=== PATIENT | male | born 1990 | race Caucasian/White ===

== ENCOUNTER 2018-12-21 20:09 | Emergency (ER) | payer SELFPAY ==
[~2018-12-21] VITALS: Ht 167.6 cm; Wt 97.5 kg
[2018-12-21 23:46] VITALS: BP 137/102
== END 2018-12-21 23:46 | disposition home or self-care (01) ==
LOC: ED 20:09
DX: S01.112A Laceration without foreign body of left eyelid and periocular area, initial encounter (principal); W18.2XXA Fall in (into) shower or empty bathtub, initial encounter; Y93.89 Activity, other specified; Y92.89 Other specified places as the place of occurrence of the external cause; Y99.8 Other external cause status
CPT/HCPCS: 90715; J2001

== ENCOUNTER 2018-12-25 12:57 | Emergency (ER) | payer SELFPAY, OTHER | END 2018-12-25 15:37 | disposition home or self-care (01) | LOC: ED 12:57 ==